=== PATIENT | male | born 1960 | race African-American/Black ===

== ENCOUNTER 2016-09-30 07:57 | Emergency (ER) | payer MEDICAID ==
--- NOTE | 2016-09-30 08:06 | ERNOTE ---
<Brendan Newell - Last Filed: 09/30/16 08:10> Medical Problem HPI - Narrative Date of Service: 09/30/16 - General Time Seen by Provider: 09/30/16 07:58 Source: patient, EMS Exam Limitations: clinical condition - SL CONFUSED - Immun/Allergies/Home Medications Immunizations: IMMUNIZATION HX Immunizations Up to Date Yes History of Influenza Vaccine No Hx Pneumococcal Vaccination No Allergies/Adverse Reactions: Allergies Penicillins Allergy (Verified 09/30/16 08:12) Home Medications: HOME MEDICATIONS oxyCODONE HCL/ACETAMINOPHEN [Percocet 5-325 mg Tablet] 1 each PO Q4H PRN #20 tablet 05/31/15 [Last Taken Unknown] - History of Present History Narrative: PT BROUGHT IN BY EMS WHEN THEY GOT CALLED FOR POSSIBLE STROKE BUT WHEN THEY GOT THERE THE PT WAS SEIZING AND HAD BEEN SO FOR ABOUT 30 MINS. ACCORDING TO BY STANDERS. HE DENIES HX OF SEIZURE . EMS REPORTS HX OF CARDIAC ARREST IN THE PAST. THE PT IS ALERT BUT STILL GROGGY AND CONFUSED. THERE IS VERY LITTLE INFORMATION IN HIS OLD RECORDS EXCEPT ON ONE EPISODE ADMITTED TO SELF MEDICATING WITH ETOH FOR PAIN AND SAYS HE HAD ONE BEER THIS MORNING. Review of Systems - Narrative Narrative: PT UNABLE TO GIVE RELIABLE ROS - Patient's Past Medical History Patient History - Medical: Chronic Pain Patient History - Cardiac/Respiratory: Hypertension - Social History Living Situations: home Abuse History: No History of abuse Psych History: No pertinent hx Alcohol Use: occasionally Drug Use: none - Immunizations Immunizations Up to Date: Yes Hx Pneumococcal Vaccination: No History of Influenza Vaccine: No Physical Exam - Physical Exam General Appearance: Present: wd/wn, alert, moderate distress - CONFUSED Eye Exam: Normal inspection: bilateral, PERRL: bilateral, EOMI: bilateral Ears, Nose, Throat: Present: normal except - - FRESH BLOOD ON HIS TONGUE Neck: Present: normal inspection Respiratory: Present: no respiratory distress, normal breath sounds, no accessory muscle use, chest nontender, lungs clear Cardiovascular/Chest: Present: regular rate, rhythm, no murmur, normal peripheral pulses Gastrointestinal/Abdominal: Present: normal bowel sounds, nontender, nondistended, soft, hepatomegaly Extremity Exam: Present: normal inspection, non-tender, normal range of motion, no edema Neurological Exam: Present: alert, no motor/sensory deficits, pecan huller II-XII nml as tested, disoriented to situation DTR: N=norm/NB=norm/brisk/A=abs/DD=dull/dimin/HC=hyperactive: Knee (R): Normal, Knee (L): Normal Skin Exam: Present: normal color Lymphatic Exam: Present: no adenopathy ED Progress - Transfer of Care Physician Sign Out: Brendan Newell Receiving Physician: Farhat Portillo Pending Results: CT/MRI results, Labs Expected Disposition: Discharge Departure - Departure Clinical Impression: Seizure Disposition: Home self-care Condition: Good Instructions: Epilepsy, [id number] <Farhat Portillo - Last Filed: 09/30/16 10:04> Medical Problem HPI - Immun/Allergies/Home Medications Immunizations: IMMUNIZATION HX Immunizations Up to Date Yes History of Influenza Vaccine No Hx Pneumococcal Vaccination No - History of Present History Timing: gone now Severity: moderate ED Progress - Results and Orders Patient's Lab Results:: I have reviewed the patient's lab results. - Vital Signs Patient's Vital Signs:: I have reviewed the patient's vital signs. Vital Signs: Vital Signs 09/30/16 09/30/16 07:58 09:09 Temperature 36.5 C 37.1 C Pulse Rate 107 H 79 Respiratory 26 H 23 H Rate Blood Pressure 166/87 162/100 O2 Sat by Pulse 96 97 Oximetry - EKG EKG: supraventricular tachycardia - X-Ray X-Ray #1 X-Ray: chest Interpretation: Reviewed by me - CT/Ultrasound CT/Ultrasound Narrative: Head CT reviewed - Progress/Reassessment Progress:: Improved - Transfer of Care Expected Disposition: Discharge Plan - Plan Plan: Unclear etiology for this likely seizure activity. I suspect that the patient consumes alcohol every day and most likely had a withdrawal seizure. Patient will be returned to the care of his family physician with the caveat that he likely needs to have an outpatient EEG undertaken.
[2016-09-30] MEDS ORDERED: ONDANSETRON HCL/PF 2 MG/ML VIAL IV ONE (08:09)
[2016-09-30 08:26] LABS: Hematocrit 40.2 % (42.0-52.0); Hemoglobin 13.6 gm/dL (13.5-18.0); Mean Cell Volume 92.6 fl (78-100); Mean Corpuscular Hemoglobin 31.3 pg (27-31); Mean Corpuscular Hgb Conc 33.8 g/dl (32-36); Mean Platelet Volume 9.8 fl (6.0-9.5); Neutrophil # 6.2 K/mm3 (1.3-6.0); Neutrophil % 68.5 % (42-75.0); Platelet Count 194 K/mm3 (150-450); Red Blood Count 4.34 M/mm3 (4.7-6.0); Red Cell Distribution Width 14.3 % (11.5-14.0)
[2016-09-30] MEDS ORDERED: THIAMINE HCL 100 MG in NORMAL SALINE 50 ML IV ONE (08:44)
[2016-09-30 08:48] LABS: Urine Bilirubin Negative (NEGATIVE); Urine Ketone Negative (NEGATIVE); Urine Nitrite Negative (NEGATIVE); Urine Protein 15 mg/dL (NEGATIVE); Urine Specific Gravity 1.025 SP.GR. (1.005-1.030); Urine Urobilinogen Normal (NORMAL)
[2016-09-30] MEDS ORDERED: ONDANSETRON HCL/PF 2 MG/ML VIAL ONE (08:48)
[2016-09-30 08:49] LABS: ALT 36 U/L (19-67); AST 61 U/L (0-48); Albumin * 3.8 gm/dl (3.4-5.0); Alkaline Phosphatase * 114 U/L (50-170); Anion Gap 22.3 mmol/L (6.8-13.8); BUN/Creatinine Ratio 6.9 (9.0-21.6); Bilirubin, Total 0.8 mg/dL (0.0-1.1); Blood Urea Nitrogen 8 mg/dL (6-23); Ca. Corrected For Albumin 9.3 mg/dL (8.4-10.2); Calcium * 9.5 mg/dL (7.9-10.9); Carbon Dioxide 20.6 mmol/L (24-32.6); Chloride 101 mmol/L (97-106); Glucose * 186 mg/dL (70-110); Potassium 3.9 mmol/L (3.4-4.6); Salicylate 3.1 mg/dL (2.8-20.0); Sodium 140 mmol/L (132-142); Total Protein 8.7 gm/dL (6.2-8.2)
[2016-09-30 08:52] LABS: Troponin I Less than 0.017 ng/ml (0.00-0.10)
[2016-09-30 08:58] LABS: Urine Blood 5 /ul (NEGATIVE)
[2016-09-30 08:59] LABS: Urine Appearance Slightly Cloudy; Urine Bacteria None Seen; Urine Color Yellow; Urine RBC 0-5 /hpf (0-5); Urine WBC 0-5 /hpf (0-5)
[2016-09-30 09:03] LABS: Cocaine Ur Negative (NEGATIVE); Urine Barbiturate Negative (NEGATIVE); Urine Benzodiazepines Negative (NEGATIVE); Urine Opiates Negative (NEGATIVE); Urine PCP Negative (NEGATIVE)
[2016-09-30 09:04] LABS: Urine THC Positive (NEGATIVE)
[2016-09-30] MEDS ORDERED: NORMAL SALINE 1,000 ML IV ONE (09:15)
[2016-09-30 10:16] VITALS: BP 162/93
== END 2016-09-30 10:17 | disposition home or self-care (01) ==
LOC: ER 07:57
DX: R56.9 Unspecified convulsions (principal)
CPT/HCPCS: 36415; 36600; 70450; 71020; 80053; 80307; 81001; 82140; 82803; 83735; 84484; 85025; 93005; 94762; 96365; 99285; G0480; G0481; J2405

== ENCOUNTER 2016-11-06 07:28 | Emergency (ER) | payer MEDICAID ==
--- NOTE | 2016-11-06 07:40 | ERNOTE ---
Trauma/Assault HPI - General Stated Complaint: SEIZURE Time Seen by Provider: 11/06/16 07:32 Source: patient, EMS Exam Limitations: no limitations - Immun/Allergies/Home Medications Allergies/Adverse Reactions: Allergies Penicillins Allergy (Verified 09/30/16 08:12) Home Medications: HOME MEDICATIONS oxyCODONE HCL/ACETAMINOPHEN [Percocet 5-325 mg Tablet] 1 each PO Q4H PRN #20 tablet 05/31/15 [Last Taken Unknown] - History of Present Illness Narrative: Pt was in the bathroom and possibly had a seizure. Friends pulled him out of the bathroom on the carpet and found that he had no feeling of hands and feet. EMS found feeling of shoulder level and above only. Upon arrival pt has no motor below shoulders and no sensory below nipple line. Pt taken to CT immediatly after examination. Location Occurred: Reports: home Pain Location: Reports: none Method of Injury: Reports: fall - possibly during a seizure Severity: moderate Loss of Consciousness: Reports: no loss of consciousness Associated Symptoms - Trauma: Reports: other - numbness below shoulders Review of Systems - Review of Systems Constitutional: Present: no symptoms reported. Absent: recent illness EYE: Absent: vision changes ENT: Present: no symptoms reported Respiratory: Absent: shortness of breath Cardiology: Absent: chest pain Gastrointestinal/Abdominal: Present: no symptoms reported Genitourinary: Present: no symptoms reported Musculoskeletal: Absent: back pain, neck pain Skin: Present: no symptoms reported Neurological: Present: seizure - started last week, has had an MRI of his brain. , numbness - below shoulders Endocrine: Present: no symptoms reported Hematologic/Lymphatic: Present: no symptoms reported Psych: Present: no symptoms reported - Patient's Past Medical History Patient History - Medical: Seizures Physical Exam - Physical Exam General Appearance: Present: wd/wn, alert, no apparent distress Head Exam: Present: normal inspection, no evidence of injury Eye Exam: Normal inspection: bilateral, PERRL: bilateral, EOMI: bilateral Ears, Nose, Throat: Present: normal ENT inspection, normal pharynx Neck: Present: nontender Respiratory: Present: no respiratory distress, normal breath sounds, lungs clear Cardiovascular/Chest: Present: regular rate, rhythm, no murmur Extremity Exam: Present: other - No evidence of injury, no sensory or motor to extremities Neurological Exam: Present: alert, oriented, normal mood/affect, motor weakness - no motor or sensory below shoulders Skin Exam: Present: normal color, warm/dry ED Progress - Results and Orders Patient's Lab Results:: I have reviewed the patient's lab results. - Vital Signs Patient's Vital Signs:: I have reviewed the patient's vital signs. - CT/Ultrasound CT/Ultrasound Narrative: CT head: abnormal cortical loss for age: no acute processes CT C-spine: Abnormal soft tissue swelling c-3-6 suggesting anterior longitudinal ligament damage. No fracture or dislocation noted. - Progress/Reassessment Progress:: Unchanged Progress Note-Subjective: Pt wanting to get up or move his neck. Pt wants C-collar taken off. Explained situation and that he needed to keep the collar in place due to unstable condition of his neck. Pt asked a couple more times if he could have the collar or back board taken off. I'm not sure if he understands his situation completely 11/06/16 08:[address] Lee at [facility] hosp. He agrees to accept the patient in transfer. 11/06/16 08:37 [facility] Departure Clinical Impression: Bilateral paralysis Injury to ligament of cervical spine Qualifiers: Encounter type: initial encounter Qualified Code(s): S13.4XXA - Sprain of ligaments of cervical spine, initial encounter - Departure Disposition: [facility] Condition: Serious
[2016-11-06 08:22] LABS: Hematocrit 37.3 % (42.0-52.0); Hemoglobin 12.6 gm/dL (13.5-18.0); Mean Cell Volume 89.9 fl (78-100); Mean Corpuscular Hemoglobin 30.4 pg (27-31); Mean Corpuscular Hgb Conc 33.8 g/dl (32-36); Mean Platelet Volume 9.3 fl (6.0-9.5); Neutrophil # 5.7 K/mm3 (1.3-6.0); Neutrophil % 68.6 % (42-75.0); Platelet Count 186 K/mm3 (150-450); Red Blood Count 4.15 M/mm3 (4.7-6.0); Red Cell Distribution Width 13.6 % (11.5-14.0); White Blood Count 8.2 K/mm3 (4.0-10.5)
[2016-11-06 08:42] LABS: Albumin * 3.5 gm/dl (3.4-5.0); Anion Gap 15.5 mmol/L (6.8-13.8); BUN/Creatinine Ratio 7.4 (9.0-21.6); Bilirubin, Total 0.6 mg/dL (0.0-1.1); Ca. Corrected For Albumin 8.8 mg/dL (8.4-10.2); Calcium * 8.7 mg/dL (7.9-10.9); Carbon Dioxide 23.1 mmol/L (24-32.6); Potassium 3.6 mmol/L (3.4-4.6); Total Protein 7.6 gm/dL (6.2-8.2)
[2016-11-06 09:06] VITALS: BP 151/90
== END 2016-11-06 08:55 | disposition short-term general hospital (02) ==
LOC: EDBD → MERGE 07:28 → ER 07:28
DX: G83.0 Diplegia of upper limbs (principal); S13.4XXA Sprain of ligaments of cervical spine, initial encounter; W19.XXXA Unspecified fall, initial encounter; Y93.89 Activity, other specified; Y92.002 Bathroom of unspecified non-institutional (private) residence as the place of occurrence of the external cause

== ENCOUNTER 2018-01-11 17:50 | Inpatient (IN) ==
[2018-01-11 18:31] LABS: Hematocrit 32.9 % (42.0-52.0); Mean Corpuscular Hemoglobin 31.7 pg (27-31); Mean Corpuscular Hgb Conc 36.5 g/dl (32-36); Mean Platelet Volume 11.4 fl (8-11.3); NRBC# 0.1 k/mm3 (0-1); Neutrophil # 10.6 K/mm3 (1.3-6.0); Neutrophil % 79.9 % (42-75.0); Platelet Count 102 K/mm3 (150-450); Red Blood Count 3.78 M/mm3 (4.7-6.0); Red Cell Distribution Width 11.9 % (11.5-14.0); White Blood Count 13.2 K/mm3 (4.0-10.5)
[2018-01-11] MEDS ORDERED: NORMAL SALINE 1,000 ML IV ONE (18:49)
[2018-01-11 19:18] LABS: ALT 28 U/L (19-67); AST 32 U/L (0-48); Albumin * 2.3 gm/dl (3.4-5.0); Alkaline Phosphatase * 101 U/L (50-170); BUN/Creatinine Ratio 13.2 (9.0-21.6); Bilirubin, Total 1.4 mg/dL (0.0-1.1); Blood Urea Nitrogen 9 mg/dL (6-23); Ca. Corrected For Albumin 9.2 mg/dL (8.4-10.2); Calcium * 8.2 mg/dL (7.9-10.9); Carbon Dioxide 15.5 mmol/L (24-32.6); Chloride 81 mmol/L (97-106); Glucose * 136 mg/dL (70-110); Potassium 3.5 mmol/L (3.4-4.6); Total Protein 6.4 gm/dL (6.2-8.2)
[2018-01-11 19:22] LABS: Sodium 113 mmol/L (132-142)
[2018-01-11] MEDS ORDERED: MULTIVIT INFUSN,ADULT 4,VIT K 10 ML, THIAMINE HCL 100 MG in NORMAL SALINE 1,000 ML IV SCH (19:45)
--- NOTE | 2018-01-11 20:04 | ERNOTE ---
Medical Problem HPI - Narrative Date of Service: 01/11/18 - General Chief Complaint: General Assessment Time Seen by Provider: 01/11/18 18:06 Source: patient - Immun/Allergies/Home Medications Immunizations: IMMUNIZATION HX Immunizations Up to Date Yes History of Influenza Vaccine No Hx Pneumococcal Vaccination No Allergies/Adverse Reactions: Allergies Penicillins Allergy (Verified 09/30/16 08:12) Home Medications: HOME MEDICATIONS triamcinolone acetonide 0.1 % topical cream 1 applic TP BID #454 g 10/28/17 [ Last Taken Unknown] baclofen 10 mg tablet 10 mg PO TID #90 tab 11/23/17 [Last Taken Unknown] Gabapentin 800 mg PO QID 01/11/18 [Last Taken Unknown] Lisinopril [Zestril] 10 mg PO DAILY 01/11/18 [Last Taken Unknown] Tamsulosin HCl 0.8 mg PO DAILY 01/11/18 [Last Taken Unknown] levETIRAcetam [Levetiracetam] 500 mg PO BID 01/11/18 [Last Taken Unknown] - History of Present History Narrative: History of male presents to the emergency room via EMS for falls at home. Patient states that he fell yesterday at home on his left shoulder. Patient appears disheveled but he is not taking adequate care of himself. Patient had multiple bottles of medications and it appears he is not taking them appropriately. Date (Duration): 01/11/18 Timing: constant Review of Systems - Review of Systems Constitutional: Present: See HPI EYE: Present: no symptoms reported ENT: Present: no symptoms reported Respiratory: Present: no symptoms reported Cardiology: Present: no symptoms reported Gastrointestinal/Abdominal: Present: no symptoms reported Genitourinary: Present: no symptoms reported Musculoskeletal: Present: See HPI, muscle pain, joint pain Skin: Present: See HPI, rash, dryness, lesions, lumps, change in color Neurological: Present: no symptoms reported Endocrine: Present: no symptoms reported Hematologic/Lymphatic: Present: no symptoms reported Psych: Present: no symptoms reported All Other Systems: All systems neg except as marked Medical History (Last Updated 01/11/18 @ 18:02 by Jenifer Chirinos) Paralysis Seizure Surgical History: Surgical History (Last Updated 01/11/18 @ 18:02 by Jenifer Chirinos) H/O neck surgery Social History: Preferred Language Cymro Abuse History No History of abuse Psych History No pertinent hx Alcohol Use occasionally Drug Use marijuana Physical Exam - Physical Exam General Appearance: Present: wd/wn, alert, no apparent distress Head Exam: Present: normal inspection, no evidence of injury Eye Exam: Normal inspection: bilateral Ears, Nose, Throat: Present: normal ENT inspection Neck: Present: normal inspection, nontender Respiratory: Present: no respiratory distress, normal breath sounds, chest nontender, lungs clear Cardiovascular/Chest: Present: regular rate, rhythm, no murmur, normal peripheral pulses, tachycardia Peripheral Pulses: N=norm/S=strong/W=weak/B=bound/A=absent: Dorsalis-pedis (R): Normal, Dorsalis-pedis (L): Normal Gastrointestinal/Abdominal: Present: normal bowel sounds, nontender, soft, no organomegaly Back Exam: Present: normal inspection, normal range of motion, no vertebral tenderness Extremity Exam: Present: normal except -, decreased range of motion - rom to left shoulder is limited r/t discomfort. , bony tenderness Neurological Exam: Present: alert, oriented, normal mood/affect, no motor/ sensory deficits Skin Exam: Present: normal color, warm/dry - multiple abrasions to arms and legs. Lymphatic Exam: Present: no adenopathy ED Progress - Results and Orders Patient's Lab Results:: I have reviewed the patient's lab results. - Vital Signs Patient's Vital Signs:: I have reviewed the patient's vital signs. Vital Signs: Vital Signs 01/11/18 17:57 01/11/18 18:03 Temperature 36.3 C Pulse Rate 104 H 98 Respiratory Rate 14 12 Blood Pressure 140/89 H 144/82 H O2 Sat by Pulse Oximetry 100 100 - EKG EKG: NSR - Progress/Reassessment Chief Complaint: General Assessment Departure Clinical Impression: Hyponatremia - Departure Disposition: Still a patient Condition: Stable
[2018-01-12] MEDS ORDERED: NORMAL SALINE 1,000 ML IV PRN (02:52)
[2018-01-12] MEDS: HYDROcodone/ACETAMINOPHEN 1 EACH TABLET PO PRN (03:01)
--- NOTE | 2018-01-12 07:55 | HP ---
Chief Complaint - Chief Complaint Date of Service: 01/12/18 Time of Service: 07:37 Chief Complaint: Fall, Shoulder Pain History of Present Illness: Garrison is a 57 yo male that presents to the ER after tripping over a chair and landing on his left side. He reported left shoulder pain, xray shows distal clavicle fracture. Labs performed showed sodium of 113. Last sodium was normal. He reports eating and drinking per his normal. He denies any other symptoms beyond his left shoulder pain. He reports his fall was not related to weakness, dizziness, or anything other than going too fast and tripping over a chair. He reports golfing twice a week. Of note to hyponatremia he is on lisinopril and Keppra that can cause hyponatremia. Lisinopril has been a blood pressure medication of his for a few years. The keppra may have been started in the last year. He does not recall his last seizure. Medical History (Last Reviewed 01/12/18 @ 00:55 by Abigail Gore RN) Paralysis Seizure Surgical History: Surgical History (Last Reviewed 01/12/18 @ 00:55 by Abigail Gore RN) H/O neck surgery Family History: Family History (Last Updated 01/12/18 @ 00:53 by Abigail Gore RN) Mother Diabetes Hypertension Father Myocardial infarction Hypertension Social History: Patient Lives/Resources Home Utilized Occupation Disabled Preferred Language Turkmen Do you have any uatsdin or Yes: Denominational cultural preference? Smoking Status Never smoker Have you smoked in the past 12 No months Do you dip or chew tobacco No Abuse History No History of abuse Psych History No pertinent hx Alcohol Use occasionally Drug Use marijuana Review Of Systems (GEN) - Review of Systems Generalized/Overall Review: Absent: Weakness, Chills, Fever Respiratory: Present: Cough. Absent: Shortness of Breath Cardiac: Absent: Chest Pain, Edema Abdominal: Absent: Nausea, Vomiting Genitourinary: Present: No Symptoms Reported Musculoskeletal: Present: Joint Pain, Neck Pain Neurological: Absent: Headache, Weakness Skin: Present: No Symptoms Reported Endocrine: Present: No Symptoms Reported Immunizations: IMMUNIZATION HX Immunizations Up to Date Yes History of Influenza Vaccine No Hx Pneumococcal Vaccination No Allergies/Adverse Reactions: Allergies Allergy/AdvReac Type Severity Reaction Status Date / Time Penicillins Allergy Verified 09/30/16 08:12 Home Medications: HOME MEDICATIONS triamcinolone acetonide 0.1 % topical cream 1 applic TP BID #454 g 10/28/17 [Last Taken Unknown] baclofen 10 mg tablet 10 mg PO TID #90 tab 11/23/17 [Last Taken Unknown] Gabapentin 800 mg PO QID 01/11/18 [Last Taken Unknown] Lisinopril [Zestril] 10 mg PO DAILY 01/11/18 [Last Taken Unknown] Tamsulosin HCl 0.8 mg PO DAILY 01/11/18 [Last Taken Unknown] levETIRAcetam [Levetiracetam] 500 mg PO BID 01/11/18 [Last Taken Unknown] Exam - Exam Vital Signs: Vital Signs - Last Taken Temp 36.6 C 01/12/18 06:42 Pulse 107 H 01/12/18 06:42 Resp 18 01/12/18 06:42 BP 100/60 01/12/18 06:42 Pulse Ox 100 01/12/18 06:42 Constitutional: Present: Alert, Oriented x3, Cooperative ENT Exam: Present: hearing grossly normal Eye Exam: bilateral eye: normal inspection Respiratory: Present: lungs clear, normal breath sounds Cardiovascular/Chest: Present: regular rate, rhythm, no murmur Abdomen: Present: Normal bowel sounds, soft, nontender, nondistended, no rebound tenderness Skin Exam: Present: normal color, warm/dry, no cyanosis Lymphatic: Present: no adenopathy Appearance: Present: appropriate appearance, appropriate insight Eye contact: Present: cooperative, good eye contact, normal speech Diagnostic Studies: Abnormal Lab Results 01/11/18 01/11/18 01/12/18 Range/Units 18:30 18:30 01:40 WBC 13.2 H (4.0-10.5) K/mm3 RBC 3.78 L (4.7-6.0) M/mm3 Hgb 12.0 L (13.5-18.0) gm/dL Hct 32.9 L (42.0-52.0) % MCH 31.7 H (27-31) pg MCHC 36.5 H (32-36) g/dl Plt Count 102 L (150-450) K/mm3 MPV 11.4 H (8-11.3) fl Immature Gran % (Auto) 1.70 H (0.001-0.429) % Immature Gran # (Auto) 0.23 H (0.000-0.0310) K/mm3 Neutrophils % 79.9 H (42-75.0) % Lymphocytes % 10.4 L (20-51) % Neutrophils # 10.6 H (1.3-6.0) K/mm3 Lymphocytes # 1.38 L (1.5-3.5) k/mm3 Sodium 113 L* 115 L* (132-142) mmol/L Plasma Sodium 114 L* (130-142) mmol/L Chloride 81 L (97-106) mmol/L Carbon Dioxide 15.5 L (24-32.6) mmol/L Anion Gap 20.0 H (6.8-13.8) mmol/L Est GFR (Non-Af Amer) 154 H D (60-130) mL/min Random Glucose 136 H (70-110) mg/dL Total Bilirubin 1.4 H (0.0-1.1) mg/dL Albumin 2.3 L (3.4-5.0) gm/dl Laboratory Results WBC 13.2 K/mm3 (4.0-10.5) H 01/11/18 18:30 RBC 3.78 M/mm3 (4.7-6.0) L 01/11/18 18:30 Hgb 12.0 gm/dL (13.5-18.0) L 01/11/18 18:30 Hct 32.9 % (42.0-52.0) L 01/11/18 18:30 MCV 87.0 fl (78-100) 01/11/18 18:30 MCH 31.7 pg (27-31) H 01/11/18 18:30 MCHC 36.5 g/dl (32-36) H 01/11/18 18:30 RDW 11.9 % (11.5-14.0) 01/11/18 18:30 Plt Count 102 K/mm3 (150-450) L 01/11/18 18:30 MPV 11.4 fl (8-11.3) H 01/11/18 18:30 Immature Gran % (Auto) 1.70 % (0.001-0.429) H 01/11/18 18:30 Immature Gran # (Auto) 0.23 K/mm3 (0.000-0.0310) H 01/11/18 18:30 Neutrophils % 79.9 % (42-75.0) H 01/11/18 18:30 Lymphocytes % 10.4 % (20-51) L 01/11/18 18:30 Monocytes % 7.8 % (0.0-9) 01/11/18 18:30 Eosinophils % 0.0 % (0.0-3.0) 01/11/18 18:30 Basophils % 0.2 % (0.0-1.0) 01/11/18 18:30 Nucleated RBC % 0.1 k/mm3 (0-1) 01/11/18 18:30 Neutrophils # 10.6 K/mm3 (1.3-6.0) H 01/11/18 18:30 Lymphocytes # 1.38 k/mm3 (1.5-3.5) L 01/11/18 18:30 Monocytes # 1.0 k/mm3 (0.0-1.0) 01/11/18 18:30 Eosinophils # 0.0 k/mm3 (0.0-0.7) 01/11/18 18:30 Absolute Basophils 0.0 k/mm3 (0.0-0.1) 01/11/18 18:30 Sodium 115 mmol/L (132-142) L* 01/12/18 01:40 Plasma Sodium 114 mmol/L (130-142) L* 01/11/18 18:30 Potassium 3.5 mmol/L (3.4-4.6) 01/11/18 18:30 Chloride 81 mmol/L (97-106) L 01/11/18 18:30 Carbon Dioxide 15.5 mmol/L (24-32.6) L 01/11/18 18:30 Anion Gap 20.0 mmol/L (6.8-13.8) H 01/11/18 18:30 BUN 9 mg/dL (6-23) 01/11/18 18:30 Creatinine 0.68 mg/dL (0.4-1.4) 01/11/18 18: Est GFR (Non-Af Amer) 154 mL/min (60-130) H D 01/11/18 18:30 BUN/Creatinine Ratio 13.2 (9.0-21.6) 01/11/18 18:30 Random Glucose 136 mg/dL (70-110) H 01/11/18 18:30 Calcium 8.2 mg/dL (7.9-10.9) 01/11/18 18:30 Calcium Adj for Albumin 9.2 mg/dL (8.4-10.2) 01/11/18 18:30 Total Bilirubin 1.4 mg/dL (0.0-1.1) H 01/11/18 18:30 AST 32 U/L (0-48) 01/11/18 18:30 ALT 28 U/L (19-67) 01/11/18 18:30 Alkaline Phosphatase 101 U/L (50-170) 01/11/18 18:30 Ammonia Less than 17.0 mcmol/L (11-35) 01/11/18 18:30 Total Protein 6.4 gm/dL (6.2-8.2) 01/11/18 18:30 Albumin 2.3 gm/dl (3.4-5.0) L 01/11/18 18:30 Ethyl Alcohol Less than 3.0 mg/dL (0.0-10.0) 01/11/18 18:30 Assessment/Plan - Narrative Narrative: Brian Chambers is a 57 yo male with: 1) Profound Hyponatremia of 113. Will treat with normal saline and monitor sodium. Will adjust rate or change to hypertonic saline if needed. Garrison does not appear hypervolumic so I suspect sodium will be corrected with replacement only. He may have a lower than normal baseline due to keppra and lisinopril combination, however he has not had a sodium checked while being on both of those medications until this admission. I do not know his baseline functionality. Will have him evaluated by PT to make sure he ambulates as well as he reports. 2) Nondisplaced closed distal clavical fracture. He was placed in a sling. Fracture appears non-surgical. - Assessment/Plan (1) Hyponatremia Problem: Acute (2) Closed fracture of distal clavicle Problem: Acute Qualifiers: Encounter type: initial encounter Fracture alignment: nondisplaced Laterality: left Qualified Code(s): S42.035A - Nondisplaced fracture of lateral end of left clavicle, initial encounter for closed fracture
[2018-01-12 08:28] LABS: Anion Gap 11.6 mmol/L (6.8-13.8); BUN/Creatinine Ratio 12.7 (9.0-21.6); Calcium * 7.3 mg/dL (7.9-10.9); Carbon Dioxide 19.5 mmol/L (24-32.6); Estimated Creat Clear 118.9; Hematocrit 29.8 % (42.0-52.0); Hemoglobin 10.6 gm/dL (13.5-18.0); Mean Cell Volume 88.2 fl (78-100); Mean Corpuscular Hemoglobin 31.4 pg (27-31); Mean Corpuscular Hgb Conc 35.6 g/dl (32-36); Mean Platelet Volume 11.6 fl (8-11.3); Neutrophil # 6.8 K/mm3 (1.3-6.0); Neutrophil % 72.4 % (42-75.0); Platelet Count 87 K/mm3 (150-450); Potassium 3.1 mmol/L (3.4-4.6); Red Blood Count 3.38 M/mm3 (4.7-6.0); White Blood Count 9.4 K/mm3 (4.0-10.5)
[2018-01-12] MEDS ORDERED: POTASSIUM CHLORIDE 20 MEQ TABLET.SA PO ONE (08:37)
[2018-01-12] MEDS: GABAPENTIN 400 MG CAPSULE PO SCH ×4 (08:58→21:56)
[2018-01-12] MEDS: levETIRAcetam 500 MG TABLET PO SCH ×2 (08:59→21:56)
[2018-01-12 09:20] LABS: Urine Bilirubin 3 mg/dl (NEGATIVE); Urine Blood Negative /ul (NEGATIVE); Urine Ketone 50 mg/dL (NEGATIVE); Urine Nitrite Negative (NEGATIVE); Urine Protein Negative (NEGATIVE); Urine Urobilinogen Normal (NORMAL)
[2018-01-12 09:29] LABS: Cocaine Ur Negative (NEGATIVE); Urine Barbiturate Negative (NEGATIVE); Urine Benzodiazepines Negative (NEGATIVE); Urine PCP Negative (NEGATIVE)
[2018-01-12 09:31] LABS: Urine Opiates Positive (NEGATIVE); Urine THC Positive (NEGATIVE)
[2018-01-12 09:33] LABS: Urine Appearance Clear (CLEAR); Urine Bacteria TRACE; Urine Color Dark Yellow; Urine RBC None Seen /hpf (0-5); Urine WBC 0-5 /hpf (0-5)
[2018-01-12] MEDS: SODIUM CHLORIDE 3 % 500 ML IV SCH (10:47)
[2018-01-12] MEDS: NYSTATIN 15 APPL TUBE TP SCH ×2 (10:56→21:56)
[2018-01-12] MEDS: TAMSULOSIN HCL 0.4 MG CAP.SR.24H PO SCH (19:19)
[2018-01-12 20:39] LABS: Anion Gap 11.2 mmol/L (6.8-13.8); BUN/Creatinine Ratio 9.3 (9.0-21.6); Calcium * 7.8 mg/dL (7.9-10.9); Carbon Dioxide 19.6 mmol/L (24-32.6); Estimated Creat Clear 98.2; Potassium 3.8 mmol/L (3.4-4.6)
[2018-01-12 22:41] LABS: Anion Gap 12.2 mmol/L (6.8-13.8); BUN/Creatinine Ratio 12.3 (9.0-21.6); Calcium * 7.7 mg/dL (7.9-10.9); Carbon Dioxide 16.7 mmol/L (24-32.6); Estimated Creat Clear 129.9; Potassium 3.9 mmol/L (3.4-4.6)
[2018-01-13] MEDS: SODIUM CHLORIDE 3 % 500 ML IV SCH (03:01)
[2018-01-13] MEDS: HYDROcodone/ACETAMINOPHEN 1 EACH TABLET PO PRN ×3 (07:27→21:02)
--- NOTE | 2018-01-13 08:20 | PN ---
Subjective - Date and Time Seen Date: 01/13/18 Time: 08:14 Subjective Narrative: Pt. continues to be hyponatremic etiology unknown but I suspect SIADH. Need to R/o tumor as a cause. CXR is non-revealing. Objective - Review of Systems Generalized/Overall Review: Reports: Weakness, Malaise, Fatigue EENTM: Reports: No Symptoms Reported Respiratory: Reports: Cough, Shortness of Breath Cardiac: Reports: No Symptoms Reported Abdominal: Reports: No Symptoms Reported Genitourinary Symptoms: Reports: No Symptoms Reported Musculoskeletal Complaints: Reports: No Symptoms Reported Neurological: Reports: No Symptoms Reported Skin: Reports: No Symptoms Reported Endocrine: Reports: No Symptoms Reported - Vitals Vitals: Last Vital Signs Temp 36.5 C 01/13/18 06:51 Pulse 105 H 01/13/18 06:51 Resp 18 01/13/18 06:51 BP 100/70 01/13/18 06:51 Pulse Ox 95 01/13/18 06:51 - Abnormal Lab Findings Abnormal Lab Findings: Abnormal Lab Results 01/12/18 01/12/18 01/12/18 Range/Units 08:18 08:18 09:05 RBC 3.38 L (4.7-6.0) M/mm3 Hgb 10.6 L (13.5-18.0) gm/dL Hct 29.8 L (42.0-52.0) % MCH 31.4 H (27-31) pg Plt Count 87 L (150-450) K/mm3 MPV 11.6 H (8-11.3) fl Immature Gran % (Auto) 1.30 H (0.001-0.429) % Immature Gran # (Auto) 0.12 H (0.000-0.0310) K/mm3 Lymphocytes % 18.7 L (20-51) % Neutrophils # 6.8 H (1.3-6.0) K/mm3 Sodium 115 L* (132-142) mmol/L Plasma Sodium 115 L* (130-142) mmol/L Potassium 3.1 L (3.4-4.6) mmol/L Chloride 87 L (97-106) mmol/L Carbon Dioxide 19.5 L (24-32.6) mmol/L Est GFR (Non-Af Amer) 147 H (60-130) mL/min Random Glucose 124 H (70-110) mg/dL Calcium 7.3 L (7.9-10.9) mg/dL Urine Bilirubin 3 H (NEGATIVE) mg/dl Urine Opiates Screen (NEGATIVE) Urine Marijuana (THC) (NEGATIVE) 01/12/18 01/12/18 01/12/18 Range/Units 09:15 10:00 16:36 RBC (4.7-6.0) M/mm3 Hgb (13.5-18.0) gm/dL Hct (42.0-52.0) % MCH (27-31) pg Plt Count (150-450) K/mm3 MPV (8-11.3) fl Immature Gran % (Auto) (0.001-0.429) % Immature Gran # (Auto) (0.000-0.0310) K/mm3 Lymphocytes % (20-51) % Neutrophils # (1.3-6.0) K/mm3 Sodium 115 L* 120 L (132-142) mmol/L Plasma Sodium 120 L (130-142) mmol/L Potassium (3.4-4.6) mmol/L Chloride 93 L (97-106) mmol/L Carbon Dioxide 19.6 L (24-32.6) mmol/L Est GFR (Non-Af Amer) (60-130) mL/min Random Glucose (70-110) mg/dL Calcium 7.8 L (7.9-10.9) mg/dL Urine Bilirubin (NEGATIVE) mg/dl Urine Opiates Screen Positive H (NEGATIVE) Urine Marijuana (THC) Positive H (NEGATIVE) 01/12/18 Range/Units 22:20 RBC (4.7-6.0) M/mm3 Hgb (13.5-18.0) gm/dL Hct (42.0-52.0) % MCH (27-31) pg Plt Count (150-450) K/mm3 MPV (8-11.3) fl Immature Gran % (Auto) (0.001-0.429) % Immature Gran # (Auto) (0.000-0.0310) K/mm3 Lymphocytes % (20-51) % Neutrophils # (1.3-6.0) K/mm3 Sodium 119 L (132-142) mmol/L Plasma Sodium 119 L* (130-142) mmol/L Potassium (3.4-4.6) mmol/L Chloride 94 L (97-106) mmol/L Carbon Dioxide 16.7 L (24-32.6) mmol/L Est GFR (Non-Af Amer) 162 H D (60-130) mL/min Random Glucose (70-110) mg/dL Calcium 7.7 L (7.9-10.9) mg/dL Urine Bilirubin (NEGATIVE) mg/dl Urine Opiates Screen (NEGATIVE) Urine Marijuana (THC) (NEGATIVE) - EKG/Xray Findings XRAY: chest Interpretation: Reviewed by me - Exam Constitutional: Present: Alert, Oriented x3, Cooperative, Thin and frail ENT Exam: Present: normal ENT inspection, hearing grossly normal, pharynx normal, TMs normal, hard of hearing Neck: Present: non-tender, full range of motion Breasts: Present: Exam deferred Respiratory: Present: chest non-tender, decreased breath sounds, expiration (prolonged) Cardiovascular/Chest: Present: normal peripheral pulses, regular rate, rhythm, no chest tenderness Abdomen: Present: Normal bowel sounds, soft, nontender, nondistended Extremity: Present: normal range of motion, non-tender, normal inspection Skin Exam: Present: normal color, warm/dry Lymphatic: Present: no adenopathy Neurologic: Present: japanese interpreter II-XII nml as tested, no motor/sensory deficits Appearance: Present: appropriate appearance Eye contact: Present: cooperative, good eye contact Thoughts: Present: normal thought pattern, no apparent hallucination Assessment/Plan Plan Narrative: 1. Workup for his hyponatremia. 2. repeat cbc, cmp, mg this morning. - Problems/Diagnosis (1) Chronic pain Problem: Acute Qualifiers: Chronic pain type: other chronic pain Qualified Code(s): G89.29 - Other chronic pain (2) Seizure Problem: Acute (3) Hyponatremia Problem: Acute
[2018-01-13] MEDS: ENOXAPARIN SODIUM 40 MG/0.4 ML SYRG SC SCH (09:00)
[2018-01-13] MEDS: NYSTATIN 15 APPL TUBE TP SCH ×2 (09:02→20:59)
[2018-01-13] MEDS: GABAPENTIN 400 MG CAPSULE PO SCH ×4 (09:03→20:58)
[2018-01-13] MEDS: levETIRAcetam 500 MG TABLET PO SCH ×2 (09:03→20:58)
[2018-01-13 09:40] LABS: Anion Gap 11.1 mmol/L (6.8-13.8); BUN/Creatinine Ratio 8.1 (9.0-21.6); Calcium * 7.9 mg/dL (7.9-10.9); Carbon Dioxide 19.2 mmol/L (24-32.6); Estimated Creat Clear 114.1; Potassium 3.3 mmol/L (3.4-4.6)
[2018-01-13] MEDS: TAMSULOSIN HCL 0.4 MG CAP.SR.24H PO SCH (20:57)
[2018-01-13] MEDS: HYDROPHILIC OINTMENT 454 APPL JAR TP SCH (20:57)
[2018-01-14 05:41] LABS: Anion Gap 11.5 mmol/L (6.8-13.8); BUN/Creatinine Ratio 7.9 (9.0-21.6); Calcium * 7.6 mg/dL (7.9-10.9); Potassium 3.5 mmol/L (3.4-4.6)
[2018-01-14] MEDS: GABAPENTIN 400 MG CAPSULE PO SCH ×4 (08:07→21:12)
[2018-01-14] MEDS: levETIRAcetam 500 MG TABLET PO SCH ×2 (08:07→21:13)
[2018-01-14] MEDS: ENOXAPARIN SODIUM 40 MG/0.4 ML SYRG SC SCH (08:08)
[2018-01-14] MEDS: HYDROPHILIC OINTMENT 454 APPL JAR TP SCH ×2 (08:08→21:15)
[2018-01-14] MEDS: HYDROcodone/ACETAMINOPHEN 1 EACH TABLET PO PRN ×2 (08:08→21:21)
[2018-01-14] MEDS: NYSTATIN 15 APPL TUBE TP SCH ×2 (08:12→21:15)
--- NOTE | 2018-01-14 18:22 | PN ---
Subjective - Date and Time Seen Date: 01/14/18 Time: 08:30 Subjective Narrative: Mr. Chambers's lab is stabilized. Stopped his IV normal saline last night and had stopped his hypertonic saline yesterday afternoon. His sodium last night was 125 and this morning is 128 all up from 113. However, he is confused. He is unable to do simple tasks like "a small box of cereal. He is disoriented to time and date and person. He did know that he was in [facility]. In trying to walk and was a 2 person assist. Physical therapy has worked with him and have Dr. Carrasco. He is certainly not independent enough to go home today. We'll reassess tomorrow. Objective - Review of Systems Generalized/Overall Review: Reports: Weakness, Malaise, Weight loss EENTM: Reports: No Symptoms Reported Respiratory: Reports: No Symptoms Reported Cardiac: Reports: No Symptoms Reported Abdominal: Reports: No Symptoms Reported Genitourinary Symptoms: Reports: No Symptoms Reported Musculoskeletal Complaints: Reports: No Symptoms Reported Neurological: Reports: No Symptoms Reported, Tremors Endocrine: Reports: No Symptoms Reported - Vitals Vitals: Last Vital Signs Temp 36.9 C 01/14/18 15:16 Pulse 93 01/14/18 15:16 Resp 18 01/14/18 15:16 BP 110/76 01/14/18 15:16 Pulse Ox 100 01/14/18 15:16 - Abnormal Lab Findings Abnormal Lab Findings: Abnormal Lab Results 01/14/18 Range/Units 05:10 Sodium 128 L (132-142) mmol/L Plasma Sodium 128 L (130-142) mmol/L Carbon Dioxide 23.0 L (24-32.6) mmol/L BUN 5 L (6-23) mg/dL Est GFR (Non-Af Amer) 168 H (60-130) mL/min BUN/Creatinine Ratio 7.9 L (9.0-21.6) Calcium 7.6 L (7.9-10.9) mg/dL - EKG/Xray Findings EKG: NSR - Exam Constitutional: Present: Alert, Oriented x3, Cooperative, Well developed, Well nourished, No distress ENT Exam: Present: normal ENT inspection, hearing grossly normal, pharynx normal Neck: Present: non-tender, full range of motion, supple, normal inspection Breasts: Present: Exam deferred, Nontender Respiratory: Present: chest non-tender, lungs clear, normal breath sounds Cardiovascular/Chest: Present: normal peripheral pulses, regular rate, rhythm, no chest tenderness, no edema, no gallop, no JVD, no murmur Abdomen: Present: Normal bowel sounds, soft, nontender /Rectal: Present: Exam deferred Extremity: Present: normal range of motion - Except for the 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 Absent: normal cerebellar test, no motor/sensory deficits, normal mood/affect, oriented x 3, aphasia Appearance: Present: appropriate appearance, appropriate insight Eye contact: Present: cooperative, good eye contact. Absent: normal speech Thoughts: Present: normal thought pattern, no apparent hallucination Assessment/Plan Plan Narrative: Have physical therapy work with him today and tomorrow and we'll see her back getting him home tomorrow. Recheck his electrolytes tomorrow morning. - Problems/Diagnosis (1) Hyponatremia Problem: Acute (2) Seizure Problem: Acute (3) Chronic pain Problem: Acute Qualifiers: Chronic pain type: other chronic pain Qualified Code(s): G89.29 - Other chronic pain (4) Balance problem Problem: Acute (5) Lower extremity weakness Problem: Acute
[2018-01-14] MEDS: TAMSULOSIN HCL 0.4 MG CAP.SR.24H PO SCH (19:02)
[2018-01-15 05:41] LABS: Hemoglobin 8.1 gm/dL (13.5-18.0); Mean Cell Volume 91.8 fl (78-100); Mean Corpuscular Hemoglobin 31.6 pg (27-31); Mean Corpuscular Hgb Conc 34.5 g/dl (32-36); Mean Platelet Volume 11.2 fl (8-11.3); Neutrophil # 2.8 K/mm3 (1.3-6.0); Neutrophil % 48.1 % (42-75.0); Platelet Count 71 K/mm3 (150-450); Red Blood Count 2.56 M/mm3 (4.7-6.0); Red Cell Distribution Width 12.6 % (11.5-14.0); White Blood Count 5.8 K/mm3 (4.0-10.5)
[2018-01-15 05:46] LABS: Hematocrit 23.5 % (42.0-52.0)
[2018-01-15 05:56] LABS: Albumin * 1.9 gm/dl (3.4-5.0); Anion Gap 8.7 mmol/L (6.8-13.8); BUN/Creatinine Ratio 9.4 (9.0-21.6); Bilirubin, Total 0.4 mg/dL (0.0-1.1); Calcium * 7.6 mg/dL (7.9-10.9); Carbon Dioxide 22.9 mmol/L (24-32.6); Potassium 3.6 mmol/L (3.4-4.6); Total Protein 5.3 gm/dL (6.2-8.2)
[2018-01-15] MEDS: HYDROcodone/ACETAMINOPHEN 1 EACH TABLET PO PRN ×4 (07:30→21:58)
[2018-01-15] MEDS ORDERED: TUBERCULIN,PURIF.PROT.DERIV. 5 TU/0.1 ML SYRINGE ID ONE (08:50)
[2018-01-15] MEDS: ENOXAPARIN SODIUM 40 MG/0.4 ML SYRG SC SCH (09:00)
[2018-01-15] MEDS: NYSTATIN 15 APPL TUBE TP SCH ×2 (09:00→22:10)
[2018-01-15] MEDS: HYDROPHILIC OINTMENT 454 APPL JAR TP SCH ×2 (09:00→22:10)
[2018-01-15] MEDS: THIAMINE HCL 100 MG TABLET PO SCH (09:02)
[2018-01-15] MEDS: levETIRAcetam 500 MG TABLET PO SCH ×2 (09:02→21:56)
[2018-01-15] MEDS: GABAPENTIN 400 MG CAPSULE PO SCH ×4 (09:02→21:57)
[2018-01-15 09:12] LABS: Total Cells Counted 100
[2018-01-15 09:53] LABS: Bilirubin Direct 0.2 mg/dL (0.0-0.3)
[2018-01-15 10:09] LABS: Basophil 2 % (0-1); Eosinophil 1 % (0-3); Immature Granulocyte 2 (0-1); Lymphocyte 28 % (20-51); Monocyte 10 % (0-9); Neutrophil 57 % (42-75); Neutrophil # 3.3 K/mm3 (1.3-6.0)
[2018-01-15 10:12] LABS: Platelet Estimate Decreased (NORMAL)
[2018-01-15 10:13] LABS: Macrocytosis 1+; Target Cells 1+
[2018-01-15 10:14] LABS: Tear Drop Cells Trace
--- NOTE | 2018-01-15 11:26 | PATHPSR ---
PHYSICIAN: Zachary Mares LAB#: [id number] SPECIMEN DATE: 01/15/2018 CLINICAL INFORMATION: Acute hyponatremia CBC: WBC 5.8 K/mm3, hemoglobin 8.1 gm/dl, hematocrit 23.5 %, MCV is 91.8 fl, MCH is 31.6 pg, MCHC is 34.5 g/dl, Platelet count 71. Manual differential: Neutrophils 57 %, bands 0 %, lymphocytes 28 %, monocytes 10 %, eosinophils 1 %, basophils 2 % RED BLOOD CELLS: No abnormalities PLATELETS: No abnormalities WHITE BLOOD CELLS: No abnormalities DIAGNOSIS: -NORMOCYTIC NORMOCHROMIC ANEMIA -THROMBOCYTOPENIA PERIPHERAL BLOOD SMEAR, REVIEW BY PATHOLOGIST: -The peripheral smear shows normochromic normocytic red blood cells. The electrode cell count is within normal range. The morphology of the white cells is normal. Platelets are decreased at 71,000. COMMENT: No immature elements or malignancy is identified on our examination.
--- NOTE | 2018-01-15 19:15 | PN ---
Subjective - Date and Time Seen Date: 01/15/18 Time: 12:15 Subjective Narrative: I had a lengthy discussion with Brian jamie cali today explaining to him that going home for independent living was not an option at this time. We discussed other living options for him and they basically are 1: To go live with one of his 2 sisters until he gets strong enough to be independent again and to to be admitted to a retirement. He has chosen to go stay with his sister. Both sisters are to be here tomorrow and will look to taking him home then. Clinically, his sodium has dropped again to 125. It was 128 yesterday. I placed him on fluid restricted diet and added demeclocycline to try to preserve sodium. We do not have that here and [facility] Also the hemoglobin dropped to 8.2 g and the hematocrit to 23% today. A stool for cold blood was ordered and is negative. The indices would suggest this to be a hemorrhagic anemia or possibly a hemolytic anemia. I have ordered tests for hemolytic anemia but there are mostly send out tests. Also I ordered some other studies due to his mental decline including TB, VDRL, West Nile, Lyme screen, and paraneoplastic antibodies. I still believe that his profound hyponatremia is more than just his medications and more steady will have to be done on an outpatient basis to figure that out. 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 He denies wide use of alcohol although he drinks a beer or 2 has a few times a week. Physical therapy has worked with him today. He did not do well with a walker because of his paralyzed left hand. They're working with him with a hemiwalker. Last evening he was requiring 2 people assist to stand. Today he walked better without the walker that he did with. He will require continued physical therapy and home health has been set up pending his discharge hopefully tomorrow. Objective - Review of Systems Generalized/Overall Review: Reports: Weakness, Malaise, Fatigue EENTM: Reports: No Symptoms Reported Respiratory: Reports: No Symptoms Reported Cardiac: Reports: No Symptoms Reported Abdominal: Reports: No Symptoms Reported Genitourinary Symptoms: Reports: No Symptoms Reported Musculoskeletal Complaints: Reports: No Symptoms Reported Neurological: Reports: No Symptoms Reported Skin: Reports: No Symptoms Reported Endocrine: Reports: No Symptoms Reported - Vitals Vitals: Last Vital Signs Temp 36.7 C 01/15/18 16:45 Pulse 89 01/15/18 16:59 Resp 18 01/15/18 16:45 BP 100/67 01/15/18 16:45 Pulse Ox 100 01/15/18 16:45 - Abnormal Lab Findings Abnormal Lab Findings: Abnormal Lab Results 01/15/18 01/15/18 01/15/18 Range/Units 05:32 05:32 09:30 RBC 2.56 L (4.7-6.0) M/mm3 Hgb 8.1 L (13.5-18.0) gm/dL Hct 23.5 L* D (42.0-52.0) % MCH 31.6 H (27-31) pg Plt Count 71 L (150-450) K/mm3 Immature Gran % (Auto) 3.60 H (0.001-0.429) % Immature Gran # (Auto) 0.21 H (0.000-0.0310) K/mm3 Monocytes % 10.4 H (0.0-9) % Monocytes % (Manual) 10 H (0-9) % Basophils % (Manual) 2 H (0-1) % Immature Granulocytes 2 H (0-1) Platelet Estimate Decreased L (NORMAL) Immature Retic Fraction 30.2 H (2.3-13.4) % Sodium 125 L (132-142) mmol/L Plasma Sodium 125 L (130-142) mmol/L Carbon Dioxide 22.9 L (24-32.6) mmol/L Est GFR (Non-Af Amer) 165 H (60-130) mL/min Calcium 7.6 L (7.9-10.9) mg/dL Total Protein 5.3 L (6.2-8.2) gm/dL Albumin 1.9 L (3.4-5.0) gm/dl - Exam Constitutional: Present: Alert, Oriented x3, Cooperative, Thin and frail, Looks Older than stated age ENT Exam: Present: normal ENT inspection, other - Poor dentition Neck: Present: non-tender, full range of motion, supple Breasts: Present: Nontender Respiratory: Present: chest non-tender, lungs clear, normal breath sounds Cardiovascular/Chest: Present: normal peripheral pulses, regular rate, rhythm, no chest tenderness, no edema, no gallop, no JVD, no murmur, no rub Abdomen: Present: Normal bowel sounds, soft, nontender, nondistended, no rebound tenderness, no hepatospenomegaly, no masses Extremity: Present: normal range of motion, non-tender Skin Exam: Present: normal color, warm/dry, no cyanosis Lymphatic: Present: no adenopathy, axilla node tender (R) Neurologic: Present: blown film extrusion operator II-XII nml as tested, no motor/sensory deficits, alert, normal mood/affect, oriented x 3 Appearance: Present: appropriate appearance Eye contact: Present: cooperative, good eye contact, normal speech Thoughts: Present: normal thought pattern, no apparent hallucination Assessment/Plan Plan Narrative: See discussion above please thank you - Problems/Diagnosis (1) Hyponatremia Problem: Acute (2) Seizure Problem: Acute (3) Chronic pain Problem: Acute Qualifiers: Chronic pain type: other chronic pain Qualified Code(s): G89.29 - Other chronic pain (4) Balance problem Problem: Acute (5) Lower extremity weakness Problem: Acute
[2018-01-15] MEDS: TAMSULOSIN HCL 0.4 MG CAP.SR.24H PO SCH (21:55)
[2018-01-15] MEDS: DEMECLOCYCLINE HCL 300 MG TABLET PO SCH (21:56)
[2018-01-16 05:48] LABS: Hematocrit 26.7 % (42.0-52.0); Mean Cell Volume 93.4 fl (78-100); Mean Corpuscular Hemoglobin 31.5 pg (27-31); Mean Corpuscular Hgb Conc 33.7 g/dl (32-36); Mean Platelet Volume 10.7 fl (8-11.3); Neutrophil # 2.3 K/mm3 (1.3-6.0); Neutrophil % 50.5 % (42-75.0); Platelet Count 87 K/mm3 (150-450); Red Blood Count 2.86 M/mm3 (4.7-6.0); Red Cell Distribution Width 12.8 % (11.5-14.0); White Blood Count 4.6 K/mm3 (4.0-10.5)
[2018-01-16 06:08] LABS: Anion Gap 7.8 mmol/L (6.8-13.8); BUN/Creatinine Ratio 8.5 (9.0-21.6); Carbon Dioxide 27.8 mmol/L (24-32.6); Estimated Creat Clear 143.1; Potassium 3.6 mmol/L (3.4-4.6)
[2018-01-16] MEDS: HYDROcodone/ACETAMINOPHEN 1 EACH TABLET PO PRN ×2 (07:46→12:37)
[2018-01-16] MEDS: ENOXAPARIN SODIUM 40 MG/0.4 ML SYRG SC SCH (08:39)
[2018-01-16] MEDS: HYDROPHILIC OINTMENT 454 APPL JAR TP SCH (08:41)
[2018-01-16] MEDS: DEMECLOCYCLINE HCL 300 MG TABLET PO SCH (08:41)
[2018-01-16] MEDS: levETIRAcetam 500 MG TABLET PO SCH (08:42)
[2018-01-16] MEDS: NYSTATIN 15 APPL TUBE TP SCH (08:42)
[2018-01-16] MEDS: THIAMINE HCL 100 MG TABLET PO SCH (08:42)
[2018-01-16] MEDS: GABAPENTIN 400 MG CAPSULE PO SCH ×2 (08:42→12:37)
--- NOTE | 2018-01-16 14:33 | DS ---
(1) Hyponatremia Problem: Acute (2) Seizure Problem: Acute (3) Chronic pain Problem: Acute Qualifiers: Chronic pain type: other chronic pain Qualified Code(s): G89.29 - Other chronic pain (4) Balance problem Problem: Acute (5) Lower extremity weakness Problem: Acute (6) Mental confusion determined by examination Problem: Acute Description of Stay: Brian Chambers is a 57-year-old male admitted through the emergency room with profound weakness and recent fall. 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 He is confused and was dehydrated on admission. His sodium was 113. Etiology for the hyponatremia is still uncertain. He was taking 3 medicines that could lower his sodium slightly but I don't believe to this extent. The patient was given hypertonic saline initially and then started on normal saline. His sodium claudette to a high of 128 and yesterday was 125 and today is 1:30. I started him on the Declomycin yesterday. He will continue that medication at home. 2 days ago it took 2 people to get him to stand and then he was very weak and unsteady. Yesterday he walked better without a walker and one person assist. Today he is walking with a wide gait and stance is ataxic but walked about 120 feet. It is apparent that Mr. Chambers is not strong enough nor can he manage his activities of daily living so that he can go back to independent living in his own home. His sister has agreed to take him home with her and he has reluctantly agreed to go there for a couple of weeks. He will have home health to do physical therapy. He will need further workup on an outpatient basis including brain MRI, CT of the chest and abdomen with and without contrast to rule out an occult tumor causing his inappropriate ADH and hyponatremia. This will be set up as an outpatient. He is to follow with me in the office in about 2 weeks. Procedures Performed: none Results and Findings: Lab Pending Results 01/11/18 18:30: WBC 13.2 H, RBC 3.78 L, Hgb 12.0 L, Hct 32.9 L, MCV 87.0, MCH 31.7 H, MCHC 36.5 H, RDW 11.9, Plt Count 102 L, MPV 11.4 H, Immature Gran % (Auto) 1.70 H, Immature Gran # (Auto) 0.23 H, Neutrophils % 79.9 H, Lymphocytes % 10.4 L, Monocytes % 7.8, Eosinophils % 0.0, Basophils % 0.2, Nucleated RBC % 0.1, Neutrophils # 10.6 H, Lymphocytes # 1.38 L, Monocytes # 1.0, Eosinophils # 0.0, Absolute Basophils 0.0 01/11/18 18:30: Sodium 113 L*, Plasma Sodium 114 L*, Potassium 3.5, Chloride 81 L, Carbon Dioxide 15.5 L, Anion Gap 20.0 H, BUN 9, Creatinine 0.68, Est GFR (Non-Af Amer) 154 H D, BUN/Creatinine Ratio 13.2, Random Glucose 136 H, Calcium 8.2, Calcium Adj for Albumin 9.2, Total Bilirubin 1.4 H, AST 32, ALT 28, Alkaline Phosphatase 101, Total Protein 6.4, Albumin 2.3 L, Ethyl Alcohol Less than 3.0 01/11/18 18:30: Ammonia Less than 17.0 01/12/18 01:40: Sodium 115 L* 01/12/18 08:18: Sodium 115 L*, Plasma Sodium 115 L*, Potassium 3.1 L, Chloride 87 L, Carbon Dioxide 19.5 L, Anion Gap 11.6, BUN 9, Creatinine 0.71, Est GFR (Non-Af Amer) 147 H, BUN/Creatinine Ratio 12.7, Random Glucose 124 H, Calcium 7.3 L 01/12/18 08:18: WBC 9.4 D, RBC 3.38 L, Hgb 10.6 L, Hct 29.8 L, MCV 88.2, MCH 31.4 H, MCHC 35.6, RDW 12.0, Plt Count 87 L, MPV 11.6 H, Immature Gran % (Auto) 1.30 H, Immature Gran # (Auto) 0.12 H, Neutrophils % 72.4, Lymphocytes % 18.7 L, Monocytes % 7.2, Eosinophils % 0.3, Basophils % 0.1, Nucleated RBC % 0.0, Neutrophils # 6.8 H, Lymphocytes # 1.76, Monocytes # 0.7, Eosinophils # 0.0, Absolute Basophils 0.0 01/12/18 09:05: Urine Color Dark yellow, Urine Appearance Clear, Urine pH 6.0, Ur Specific [place] 1.020, Urine Protein Negative, Urine Glucose (UA) Negative, Urine Ketones 50, Urine Blood Negative, Urine Nitrate Negative, Urine Bilirubin 3 H, Urine Ictotest Negative, Urine Urobilinogen Normal, Ur Leukocyte Esterase Negative, Urine RBC None seen, Urine WBC 0-5, Ur Epithelial Cells 0-5, Urine Bacteria Trace, Urine Culture Comments No culture indicated 01/12/18 09:15: Urine Opiates Screen Positive H, Barbiturate Screen Negative, Ur Phencyclidine Scrn Negative, Urine Amphetamine Negative, U Benzodiazepines Scrn Negative, Urine Cocaine Screen Negative, Urine Marijuana (THC) Positive H 01/12/18 10:00: Sodium 115 L* 01/12/18 16:36: Sodium 120 L, Plasma Sodium 120 L, Potassium 3.8 D, Chloride 93 L, Carbon Dioxide 19.6 L, Anion Gap 11.2, BUN 8, Creatinine 0.86, Est GFR (Non- Af Amer) 117 D, BUN/Creatinine Ratio 9.3, Random Glucose 104, Calcium 7.8 L 01/12/18 22:20: Sodium 119 L, Plasma Sodium 119 L*, Potassium 3.9, Chloride 94 L, Carbon Dioxide 16.7 L, Anion Gap 12.2, BUN 8, Creatinine 0.65, Est GFR (Non- Af Amer) 162 H D, BUN/Creatinine Ratio 12.3, Random Glucose 99, Calcium 7.7 L 01/13/18 09:28: Sodium 126 L, Plasma Sodium 127 L, Potassium 3.3 L, Chloride 99, Carbon Dioxide 19.2 L, Anion Gap 11.1, BUN 6, Creatinine 0.74, Est GFR (Non-Af Amer) 140 H, BUN/Creatinine Ratio 8.1 L, Random Glucose 148 H D, Calcium 7.9 01/13/18 13:40: Sodium 125 L 01/14/18 05:10: Sodium 128 L, Plasma Sodium 128 L, Potassium 3.5, Chloride 97, Carbon Dioxide 23.0 L, Anion Gap 11.5, BUN 5 L, Creatinine 0.63, Est GFR (Non-Af Amer) 168 H, BUN/Creatinine Ratio 7.9 L, Random Glucose 95 D, Calcium 7.6 L 01/15/18 05:32: WBC 5.8 D, RBC 2.56 L, Hgb 8.1 L, Hct 23.5 L* D, MCV 91.8, MCH 31.6 H, MCHC 34.5, RDW 12.6, Plt Count 71 L, MPV 11.2, Immature Gran % (Auto) 3.60 H, Immature Gran # (Auto) 0.21 H, Neutrophils % 48.1, Neutrophils % (Manual) 57, Lymphocytes % 35.8, Lymphocytes % (Manual) 28, Monocytes % 10.4 H, Monocytes % (Manual) 10 H, Eosinophils % 1.6, Eosinophils % (Manual) 1, Basophils % 0.5, Basophils % (Manual) 2 H, Nucleated RBC % 0.0, Immature Granulocytes 2 H, Neutrophils # 2.8, Neutrophils # (Manual) 3.3, Lymphocytes # 2.06, Lymphocytes # (Manual) 1.6, Monocytes # 0.6, Monocytes # (Manual) 0.6, Eosinophils # 0.1, Eosinophils # (Manual) 0.1, Basophils # (Manual) 0.1, Absolute Basophils 0.0, Platelet Estimate Decreased L, Macrocytosis 1+, Target Cells 1+, Tear Drop Cells Trace 01/15/18 05:32: Sodium 125 L, Plasma Sodium 125 L, Potassium 3.6, Chloride 97, Carbon Dioxide 22.9 L, Anion Gap 8.7, BUN 6, Creatinine 0.64, Est GFR (Non-Af Amer) 165 H, BUN/Creatinine Ratio 9.4, Random Glucose 96, Calcium 7.6 L, Calcium Adj for Albumin 9.0, Total Bilirubin 0.4, AST 29, ALT 31, Alkaline Phosphatase 78, Total Protein 5.3 L, Albumin 1.9 L 01/15/18 09:00: Peripheral Blood Smear Smear sent to path. 01/15/18 09:30: Direct Bilirubin 0.2, Lactate Dehydrogenase 144 01/15/18 09:30: Peripheral Blood Smear Smear sent to path. 01/15/18 09:30: Direct Antiglob Test Negative 01/15/18 09:30: Absolute Retic 0.0457, Percent Retic 1.6, Immature Retic Fraction 30.2 H, Retic Hgb Content 30.8 01/15/18 12:02: Stool Occult Blood Negative 01/16/18 05:20: WBC 4.6 D, RBC 2.86 L, Hgb 9.0 L, Hct 26.7 L, MCV 93.4, MCH 31.5 H, MCHC 33.7, RDW 12.8, Plt Count 87 L, MPV 10.7, Immature Gran % (Auto) 3.90 H, Immature Gran # (Auto) 0.18 H, Neutrophils % 50.5, Lymphocytes % 34.6, Monocytes % 9.0, Eosinophils % 1.1, Basophils % 0.9, Nucleated RBC % 0.0, Neutrophils # 2.3, Lymphocytes # 1.58, Monocytes # 0.4, Eosinophils # 0.1, Absolute Basophils 0.0 01/16/18 05:20: Sodium 130 L, Plasma Sodium 130, Potassium 3.6, Chloride 98, Carbon Dioxide 27.8, Anion Gap 7.8, BUN 5 L, Creatinine 0.59, Est GFR (Non-Af Amer) 181 H, BUN/Creatinine Ratio 8.5 L, Random Glucose 95, Calcium 8.0 Discharge Location: Other - he is going home with his sister to live for a couple of weeks at least Disposition: Home Health Service Home Health Agency: [facility] Home Health Condition: Stable Face to Face Encounter completed per [facility] Guidelines: Yes - for home health for continued physical and occupational therapy. Discharge Activity: Activity as tolerated Discharge Diet: General/regular food, Other - no alcohol Referrals: Ruby Villarreal FNP [[facility]] - Additional Patient Instructions (free text): [facility] luz marina. Please call report and fax orders and face to face upon discharge. Complete Home Medications List: Complete Home Medication List: triamcinolone acetonide 0.1 % topical cream 1 applic TP BID #454 g 10/28/17 baclofen 10 mg tablet 10 mg PO TID #90 tab 11/23/17 Gabapentin 800 mg PO QID 01/11/18 Lisinopril [Zestril] 10 mg PO DAILY 01/11/18 Tamsulosin HCl 0.8 mg PO DAILY 01/11/18 levETIRAcetam [Levetiracetam] 500 mg PO BID 01/11/18 Demeclocycline HCl [Declomycin] 300 mg PO BID #30 tablet 01/16/18 Hydrophilic Ointment [Aquaphilic Ointment] 1 appl TP BID #1 jar 01/16/18 Nystatin [Mycostatin Cream] 1 appl TP BID #1 tube 01/16/18 Thiamine HCl [Vitamin B-1] 100 mg PO DAILY #100 tablet 01/16/18 Amb Orders for Discharge: MRI Brain W/WO * Time Frame: 1 Week, Location: Radiology
[2018-01-16 15:06] VITALS: BP 139/87
[2018-01-18 14:59] LABS: Haptoglobin 157 mg/dL (43-212)
[2018-01-19 20:31] LABS: 18KD (IGG) Band NON-REACTIVE; 23KD (IGG) Band NON-REACTIVE; 28KD (IgG) Band NON-REACTIVE; 30KD (IgG) Band NON-REACTIVE; 39KD (IgG) Band NON-REACTIVE; 39KD (IgM) Band NON-REACTIVE; 41KD (IgG) Band REACTIVE; 45KD (IgG) Band NON-REACTIVE; 58KD (IgG) Band NON-REACTIVE; 66KD (IgG) Band NON-REACTIVE; 93KD (IgG) Band NON-REACTIVE; Ab Band 2 DNR g/dL (NONE DETECTED); Ab Band 3 DNR g/dL (NONE DETECTED); Alpha 1 Globulins 0.4 g/dL (0.2-0.3); Alpha 2 Globulins 0.6 g/dL (0.5-0.9); B burgdorferi IgM WB NEGATIVE (NEGATIVE); B.burgdorferi Ab (IgG) WB NEGATIVE (NEGATIVE); Beta 1 Globulins 0.4 g/dL (0.4-0.6); Gamma Globulins 1.1 g/dL (0.8-1.7); SEP Albumin 2.5 g/dL (3.8-4.8)
[2018-01-20 05:57] LABS: 41KD (IgM) Band NON-REACTIVE
== END 2018-01-16 15:06 | disposition home health service (06) | DRG 644 ==
LOC: ER 17:50 → MS 19:35
PROVIDERS: ADMIT Family Medicine; ATTEND Family Medicine
DX: E86.0 Dehydration; W01.0XXA Fall on same level from slipping, tripping and stumbling without subsequent striking against object, initial encounter; G89.29 Other chronic pain; E22.2 Syndrome of inappropriate secretion of antidiuretic hormone; Z23 Encounter for immunization; G81.94 Hemiplegia, unspecified affecting left nondominant side; Y93.01 Activity, walking, marching and hiking; F44.89 Other dissociative and conversion disorders; S42.032A Displaced fracture of lateral end of left clavicle, initial encounter for closed fracture; Z88.0 Allergy status to penicillin; F12.90 Cannabis use, unspecified, uncomplicated; R56.9 Unspecified convulsions
CPT/HCPCS: 36415; 71010; 71045; 73030; 80048; 80053; 80307; 80320; 81001; 82140; 82248; 82272; 83010; 83615; 84165; 84295; 85007; 85025; 85045; 86592; 86617; 86788; 86789; 86880; 90686; 93005; 96360; 97110; 97116; 97161; 97530; 99285; G0479; G0481